=== PATIENT | male | born 1950 | race Caucasian/White ===

== ENCOUNTER 2017-01-21 20:46 | Inpatient (IN) | payer MEDICARE, OTHER ==
[2017-01-21] VITALS (12 sets, daily range): BP systolic 120–225; BP diastolic 87–129; PULSE 54–66; RESP 16–20; TEMP 97.5–98.1; O2SAT 95–98
[~2017-01-21] VITALS: Ht 170.2 cm; Wt 77.6 kg
[~2017-01-21 20:46] MED LIST: LISI-515 PO; ZOFR4TAB3 SL
[2017-01-21] MEDS ORDERED: ASPI325T PO (21:05)
[2017-01-21] MEDS ORDERED: LOSA100T3 PO (21:05)
--- NOTE | 2017-01-21 21:08 | PD ---
HPI Chief Complaint: Chest Pain Time Seen by Provider: 20:53 Travel History International Travel<30 days: No Contact w/Intl Traveler<30days: No Traveled to known affect area: No History of Present Illness HPI This 66-year-old male apparently developed chest pain and shortness of breath around 4:00 while he was at work. He had a little bit sweaty. It did not radiate to his arms. He had a little some discomfort in his jaw. He has no history of heart disease. 2 years ago he had a stroke area and he has had hypertension. He had recently been on atenolol but his blood pressure was not controlled and he was changed to losartan. The losartan has not been very effective with controlling his blood pressure reading. He had prostate cancer several years ago and had 40 weeks of radiation. He has not had any known heart disease. He does not smoke. There is been no surgery. He had forgotten to take his losartan this morning. At around 6:00 tonight. He also took 325 mg of aspirin prior to coming here. He is not having pain right now. After the episode for he felt okay until shortly before arrival when he had a second episode of pain which is what triggered him to come here PFS Past Medical History Cancer: Yes (PROSTATE) Cardiovascular Problems: Yes (htn on med) Cerebrovascular Accident: Yes (TIA) Diminished Hearing: No Endocrine: No Gastrointestinal Disorders: Yes (BOWEL OBSTRUCTION) GERD: Yes Genitourinary: No Hypertension: Yes Immune Disorder: No Musculoskeletal: No Neurologic: No Psychiatric: No Reproductive: No Respiratory: No Radiation Therapy: Yes (5 YEARS AGO FOR PROSTATE CA) Past Surgical History Other Surgery: No Social History Alcohol Use: Yes (WINE, OCCASIONALLY) Tobacco Use: No Substance Use: No Allergies-Medications (Allergen,Severity, Reaction): Coded Allergies: No Known Allergies (Unverified , 01/21/17) Reported Meds & Prescriptions Reported Meds & Active Scripts Active Reported Aspirin 325 Mg Tab 325 Mg PO DAILY Losartan-Hydrochlorothiazide 100-12.5 Mg Tab 1 Tab PO DAILY Review of Systems General / Constitutional: No: Fever, Chills Eyes: No: Diploplia, Blurred Vision HENT: No: Headaches, Vertigo Cardiovascular: Positive: Chest Pain or Discomfort, No: Palpitations Respiratory: No: Cough, Shortness of Breath Gastrointestinal: No: Nausea, Vomiting Genitourinary: No: Urgency, Frequency Musculoskeletal: No: Myalgias, Arthralgias Skin: No Rash, No Itching Neurologic: No: Weakness, Dizziness Hematologic/Lymphatic: No: Easy Bruising Physical Exam Narrative GENERAL: Well-developed male SKIN: Focused skin assessment warm/dry. HEAD: Atraumatic. Normocephalic. EYES: Pupils equal and round. No scleral icterus. No injection or drainage. ENT: No nasal bleeding or discharge. Mucous membranes pink and moist. NECK: Trachea midline. No JVD. CARDIOVASCULAR: Regular rate and rhythm. No murmur appreciated. RESPIRATORY: No accessory muscle use. Clear to auscultation. Breath sounds equal bilaterally. GASTROINTESTINAL: Abdomen soft, non-tender, nondistended. Hepatic and splenic margins not palpable. MUSCULOSKELETAL: No obvious deformities. No clubbing. No cyanosis. No edema. NEUROLOGICAL: Awake and alert. No obvious cranial nerve deficits. Motor grossly within normal limits. Normal speech. PSYCHIATRIC: Appropriate mood and affect; insight and judgment normal. Data Data Last Documented VS Vital Signs Date Time Temp Pulse Resp B/P (MAP) Pulse Ox O2 Delivery O2 Flow Rate FiO2 01/21/17 21:45 66 182/117 (138) 98 Nasal Cannula 2.00 01/21/17 21:27 16 01/21/17 20:46 98.1 Orders Orders Electrocardiogram (01/21/17 21:04) Basic Metabolic Panel (Bmp) (01/21/17 21:04) Complete Blood Count With Diff (01/21/17 21:04) Magnesium (Mg) (01/21/17 21:04) Prothrombin Time / Inr (Pt) (01/21/17 21:04) Act Partial Throm Time (Ptt) (01/21/17 21:04) Troponin I (01/21/17 21:04) Chest, Single Ap (01/21/17 21:04) Ecg Monitoring (01/21/17 21:04) Bilateral Bp Monitoring (01/21/17 21:04) Iv Access Insert/Monitor (01/21/17 21:04) Oximetry (01/21/17 21:04) Oxygen Administration (01/21/17 21:04) Nitroglycerin 2% Oint (Nitroglycerin 2% (01/21/17 21:15) Sodium Chloride 0.9% Flush (Ns Flush) (01/21/17 21:15) Potassium Chloride (Kcl) (01/21/17 21:45) Clonidine (Catapres) (01/21/17 22:00) Clonidine (Catapres) (01/21/17 22:30) Labs Laboratory Tests Test 01/21/17 21:10 White Blood Count 5.4 TH/MM3 Red Blood Count 4.63 MIL/MM3 Hemoglobin 14.4 GM/DL Hematocrit 42.6 % Mean Corpuscular Volume 92.0 FL Mean Corpuscular Hemoglobin 31.1 PG Mean Corpuscular Hemoglobin Concent 33.8 % Red Cell Distribution Width 13.4 % Platelet Count 208 TH/MM3 Mean Platelet Volume 7.3 FL Neutrophils (%) (Auto) 55.3 % Lymphocytes (%) (Auto) 35.3 % Monocytes (%) (Auto) 7.0 % Eosinophils (%) (Auto) 1.5 % Basophils (%) (Auto) 0.9 % Neutrophils # (Auto) 3.0 TH/MM3 Lymphocytes # (Auto) 1.9 TH/MM3 Monocytes # (Auto) 0.4 TH/MM3 Eosinophils # (Auto) 0.1 TH/MM3 Basophils # (Auto) 0.0 TH/MM3 CBC Comment DIFF FINAL Differential Comment Prothrombin Time 10.2 SEC Prothromb Time International Ratio 0.9 RATIO Activated Partial Thromboplast Time 29.0 SEC Blood Urea Nitrogen 20 MG/DL Creatinine 0.82 MG/DL Random Glucose 94 MG/DL Calcium Level 8.9 MG/DL Magnesium Level 2.3 MG/DL Sodium Level 136 MEQ/L Potassium Level 3.2 MEQ/L Chloride Level 103 MEQ/L Carbon Dioxide Level 25.2 MEQ/L Anion Gap 8 MEQ/L Estimat Glomerular Filtration Rate 94 ML/MIN Troponin I 0.06 NG/ML [facility] Medical Decision Making Medical Screen Exam Complete: Yes Emergency Medical Condition: Yes Medical Record Reviewed: Yes Differential Diagnosis Differential includes atypical chest pain, coronary artery disease, hypertension , Narrative Course EKG shows normal sinus rhythm. Troponin is 0.06. Blood pressure is elevated. Potassium is 3.2 patient has been given supplemental potassium. He has been given half inch of Nitropaste and clonidine 0.1 32 doses. His blood pressure remains elevated . He has not had chest pain in the emergency department Diagnosis Primary Impression: Hypertensive urgency Additional Impression: Chest pain Qualified Codes: R07.9 - Chest pain, unspecified Admitting Information Admitting Physician Requests: it Les Okeefe MD Jan 21, 2017 21:08
[2017-01-21] MEDS ORDERED: SODIUM CHLORIDE 0.9% FLUSH 10 ML FLUSH IVF PRN (21:15)
[2017-01-21] MEDS ORDERED: NITROGLYCERIN 2% OINT 1 GM PACKET TOP ONE (21:15)
[2017-01-21 21:24] LABS: BASOPHIL % 0.9 % (0.0-2.0); EOSINOPHIL # 0.1 TH/MM3 (0-0.4); EOSINOPHIL % 1.5 % (0.0-4.0); HEMATOCRIT 42.6 % (39.0-51.0); HEMO FLAGS DIFF FINAL; LYMPH % 35.3 % (9.0-44.0); LYMPHOCYTE # 1.9 TH/MM3 (1.0-4.8); MEAN CORPUSCULAR HEMOGLOBIN 31.1 PG (27.0-34.0); MEAN CORPUSCULAR HGB CONC 33.8 % (32.0-36.0); NEUT % 55.3 % (16.0-70.0); PLATELET COUNT 208 TH/MM3 (150-450); RED BLOOD COUNT 4.63 MIL/MM3 (4.50-5.90); RED CELL DISTRIBUTION WIDTH 13.4 % (11.6-17.2); WHITE BLOOD COUNT 5.4 TH/MM3 (4.0-11.0)
[2017-01-21 21:32] LABS: POTASSIUM 3.2 MEQ/L (3.5-5.1)
[2017-01-21 21:34] LABS: BICARBONATE 25.2 MEQ/L (21.0-32.0); MAGNESIUM 2.3 MG/DL (1.5-2.5)
--- NOTE | 2017-01-21 21:34 | RADRPT ---
EXAM DATE/TIME: 01/21/2017 21:23 [facility] COMPARISON: CHEST PA & LAT, October 16, 2015, 23:55. INDICATIONS : Short of breath and chest pain. MEDICAL HISTORY : Cerebrovascular disease. Carcinoma, prostate SURGICAL HISTORY : ENCOUNTER: Initial ACUITY: 1 day PAIN SCORE: 2/10 LOCATION: Bilateral chest FINDINGS: A single view of the chest demonstrates the lungs to be symmetrically aerated without evidence of mas s, infiltrate or effusion. The cardiomediastinal contours are unremarkable. Osseous structures are intact. CONCLUSION: No evidence of acute cardiopulmonary disease. Wing Andrea MD on January 21, 2017 at 21:33 Board Certified Radiologist. This report was verified electronically.
[2017-01-21 21:35] LABS: INTERNATIONAL NORMALIZED RATIO 0.9 RATIO; PROTHROMBIN TIME - PATIENT 10.2 SEC (9.8-11.6)
[2017-01-21] MEDS ORDERED: POTASSIUM CHLORIDE 20 MEQ CONTROLLED RELEASE TAB PO ONE (21:45)
[2017-01-21] MEDS ORDERED: cloNIDine HCL 0.1 MG TAB PO ONE ×2 (22:00→22:30)
[2017-01-21] MEDS ORDERED: SODIUM CHLORIDE 0.9% FLUSH 10 ML FLUSH IV FLUSH PRN (22:45)
[2017-01-21] MEDS ORDERED: hydrALAZINE HCL 20 MG/ML VIAL IV PUSH PRN (22:45)
[2017-01-21] MEDS ORDERED: NALOXONE HCL 0.4 MG/ML AMP IV PUSH PRN (22:45)
[2017-01-21] MEDS ORDERED: ONDANSETRON HCL 4 MG/2 ML VIAL IV PUSH ONE (23:30)
[2017-01-22] VITALS: O2SAT 95
[2017-01-22 04:00] VITALS: BP 100/72; PULSE 50; RESP 16; TEMP 98.8; O2SAT 98
[2017-01-22 06:23] LABS: AUTOMATED NEUTROPHIL # 3.7 TH/MM3 (1.8-7.7); BASOPHIL % 0.5 % (0.0-2.0); EOSINOPHIL # 0.1 TH/MM3 (0-0.4); EOSINOPHIL % 1.1 % (0.0-4.0); HEMATOCRIT 37.5 % (39.0-51.0); LYMPH % 27.1 % (9.0-44.0); LYMPHOCYTE # 1.5 TH/MM3 (1.0-4.8); MEAN CELL VOLUME 92.9 FL (80.0-100.0); MEAN CORPUSCULAR HEMOGLOBIN 31.7 PG (27.0-34.0); MEAN CORPUSCULAR HGB CONC 34.1 % (32.0-36.0); MONO % 5.5 % (0.0-8.0); NEUT % 65.8 % (16.0-70.0); PLATELET COUNT 198 TH/MM3 (150-450); POTASSIUM 3.6 MEQ/L (3.5-5.1); RED BLOOD COUNT 4.04 MIL/MM3 (4.50-5.90); RED CELL DISTRIBUTION WIDTH 13.2 % (11.6-17.2); WHITE BLOOD COUNT 5.6 TH/MM3 (4.0-11.0)
[2017-01-22 06:24] LABS: HEMO FLAGS DIFF FINAL
[2017-01-22 06:28] LABS: BICARBONATE 27.5 MEQ/L (21.0-32.0)
[2017-01-22] MEDS ORDERED: SODIUM CHLORIDE 0.9% FLUSH 10 ML FLUSH IV FLUSH SCH (09:00)
--- NOTE | 2017-01-22 10:22 | EKG ---
Date Performed: 01/22/2017 Time Performed: 02:56:31 PTAGE: 66 years EKG: SINUS BRADYCARDIA MODERATE VOLTAGE CRITERIA FOR LVH, CONSIDER NORMAL VARIANT NONSPECIFIC T- WAVE ABNORMALITY Compared to previous tracing nonspecific T wave changes are more prominent BORDERLIN E ECG PREVIOUS TRACING : 01/21/2017 20.53 DOCTOR: Phillip Tidwell Interpretating Date/Time 01/22/2017 10:18:28
--- NOTE | 2017-01-22 10:28 | EKG ---
Date Performed: 01/21/2017 Time Performed: 20:53:03 PTAGE: 66 years EKG: Sinus rhythm MODERATE VOLTAGE CRITERIA FOR LVH, CONSIDER NORMAL VARIANT BORDERLINE ECG PREVIOUS TRACING : 10/06/2013 21.13 Compared to prior tracing no significant change DOCTOR: Phillip Tidwell Interpretating Date/Time 01/22/2017 10:21:44
[2017-01-22 11:43] VITALS: BP 134/87; PULSE 51; RESP 16; TEMP 96.5; O2SAT 97
--- NOTE | 2017-01-22 11:47 | HHI.HP ---
[facility] Service [facility] Hospital[facility] Primary Care Physician Non-Staff Admission Diagnosis HYPERTENSIVE URGENCY, CHEST PAIN Diagnoses: (1) Accelerated hypertension Diagnosis: Principal (2) Chest pain Diagnosis: Principal Chief Complaint: Chest pain Travel History International Travel<30 Days: No Contact w/Intl Traveler <30 Da: No Traveled to Known Affected Are: No History of Present Illness Written by Ced Corral, acting as scribe for Dr. Odonnell on 01/22/17 at 11: 43. 66-year-old male with known history of hypertension, prostate cancer who presented to hospital because of chest discomfort. Patient states that he developed chest discomfort across his entire chest that started at approximately 4 PM yesterday afternoon while he was at work, which he describes the pressure sensation radiating into his back, with associated shortness of breath, headache. Patient indicates that his pain resolved on its own right before the time he came to emergency department which was at 8: 45. Patient Denied any nausea, vomiting, lightheadedness, dizziness. Patient does have history of hypertension and he forgot to take his blood pressure medication that morning and when he presented to the emergency department his blood pressure was 220/112. Patient was given clonidine and started on Nitropaste with significant reduction in his blood pressure. Blood pressure is now controlled. After his blood pressure was controlled the patient no longer experiencing any chest discomfort. Patient workup did indicate equivocal troponin elevation in because of those reasons is recommended by the ER physician that the patient be admitted the hospital for further evaluation and management. Review of Systems Respiratory: COMPLAINS OF: Shortness of breath Cardiovascular: COMPLAINS OF: Chest pain Neurologic: COMPLAINS OF: Headache Except as stated in HPI: all other systems reviewed are Neg Past Family Social History Past Medical History Hypertension History of prostate cancer History of gastroesophageal reflux Past Surgical History Patient denies any previous surgeries Reported Medications Reported Meds & Active Scripts Active Reported Aspirin 325 Mg Tab 325 Mg PO DAILY Losartan-Hydrochlorothiazide 100-12.5 Mg Tab 1 Tab PO DAILY Allergies: Coded Allergies: No Known Allergies (Unverified , 01/21/17) Family History Reviewed and unremarkable for any heart disease, diabetes, cancer Social History Patient denies any tobacco, alcohol or illicit drugs Physical Exam Vital Signs Vital Signs Date Time Temp Pulse Resp B/P (MAP) Pulse Ox O2 Delivery O2 Flow Rate FiO2 01/22/17 04:00 98.8 50 16 100/72 (81) 98 01/22/17 00:00 95 Nasal Cannula 2.00 01/21/17 23:45 97.5 60 20 121/93 (102) 95 01/21/17 23:38 01/21/17 23:35 57 133/88 (103) 01/21/17 23:23 58 16 127/91 (103) 98 Nasal Cannula 2.00 01/21/17 23:12 54 120/87 (98) 98 Nasal Cannula 2.00 01/21/17 23:00 64 156/100 (118) 01/21/17 22:55 63 165/112 (129) 98 Nasal Cannula 2.00 01/21/17 22:20 59 176/112 (133) 97 Nasal Cannula 2.00 01/21/17 21:45 66 182/117 (138) 98 Nasal Cannula 2.00 01/21/17 21:27 66 16 207/120 (149) 98 Nasal Cannula 2.00 01/21/17 21:12 Nasal Cannula 2.00 01/21/17 21:11 213/122 (152) 01/21/17 21:08 66 221/129 (159) 225/117 (153) 01/21/17 21:00 Room Air 01/21/17 20:46 98.1 66 20 220/112 (148) 98 Physical Exam GENERAL: Well-developed, well-nourished, in no acute distress. alert and orientated HEENT: Head is normocephalic without any lesions or masses noted. Facial features are symmetric. Eyes: Pupils equal round reactive to light. Extraocular muscles are intact. Conjunctivae were clear. Oropharyngeal: Pharynx without any erythema edema. Tongue is midline without deviation. Buccal mucosa is moist without any masses or lesions NECK: Supple without any masses. Trachea midline no deviation. No JVD, no bruits are appreciated CARDIAC: Regular rhythm, regular rate. S1/S2 are heard. No murmurs gallops or rubs. LUNGS: Clear to auscultation bilaterally. No wheeze, rhonchi or rales. No use of accessory muscles on inspiration or expiration. ABDOMEN: Soft, nontender. Nondistended. Bowel sounds heard in all 4 quadrants. No organomegaly or masses. Negative rebound, negative guarding EXTREMITIES: No edema, pulses are equal bilaterally. No cyanosis or clubbing NEUROLOGY: Mood and affect appear appropriate. Cranial nerves II through XII grossly intact. Muscle strength 5/5 in upper and lower extremities bilaterally. Deep tendon reflexes are 2+ in upper and lower extremities bilaterally. Laboratory Laboratory Tests Test 01/21/17 21:10 01/22/17 01:00 01/22/17 05:50 01/22/17 08:35 White Blood Count 5.4 5.6 Red Blood Count 4.63 4.04 Hemoglobin 14.4 12.8 Hematocrit 42.6 37.5 Mean Corpuscular Volume 92.0 92.9 Mean Corpuscular Hemoglobin 31.1 31.7 Mean Corpuscular Hemoglobin Concent 33.8 34.1 Red Cell Distribution Width 13.4 13.2 Platelet Count 208 198 Mean Platelet Volume 7.3 7.1 Neutrophils (%) (Auto) 55.3 65.8 Lymphocytes (%) (Auto) 35.3 27.1 Monocytes (%) (Auto) 7.0 5.5 Eosinophils (%) (Auto) 1.5 1.1 Basophils (%) (Auto) 0.9 0.5 Neutrophils # (Auto) 3.0 3.7 Lymphocytes # (Auto) 1.9 1.5 Monocytes # (Auto) 0.4 0.3 Eosinophils # (Auto) 0.1 0.1 Basophils # (Auto) 0.0 0.0 CBC Comment DIFF FINAL DIFF FINAL Differential Comment Prothrombin Time 10.2 Prothromb Time International Ratio 0.9 Activated Partial Thromboplast Time 29.0 Blood Urea Nitrogen 20 19 Creatinine 0.82 0.92 Random Glucose 94 103 Calcium Level 8.9 8.6 Magnesium Level 2.3 Sodium Level 136 139 Potassium Level 3.2 3.6 Chloride Level 103 104 Carbon Dioxide Level 25.2 27.5 Anion Gap 8 8 Estimat Glomerular Filtration Rate 94 83 Troponin I 0.06 0.06 0.04 Result Diagram: 01/22/17 0550 01/22/17 0550 Imaging Last Impressions Chest X-Ray 01/21/172103 Signed Impressions: Service Date/Time: December 21:23 - CONCLUSION: No evidence of acute cardiopulmonary disease. Wing Andrea MD Caprinkyra VTE Risk Assessment Caprini VTE Risk Assessment: No/Low Risk (score <= 1) Caprini Risk Assessment Model Point Value = 1 Point Value = 2 Point Value = 3 Point Value = 5 Age 41-60 Minor surgery BMI > 25 kg/m2 Swollen legs Varicose veins or History of unexplained or recurrent spontaneous Oral contraceptives or hormone replacement Sepsis (< 1 month) Serious lung disease, including pneumonia (< 1 month) Abnormal pulmonary function Acute myocardial infarction Congestive heart failure (< 1 month) History of inflammatory bowel disease Medical patient at bed rest Age 61-74 Arthroscopic surgery Major open surgery (> 45 min) Laparoscopic surgery (> 45 min) Malignancy Confined to bed (> 72 hours) Immobilizing plaster cast Central venous access Age >= 75 History of VTE Family history of VTE Factor V Leiden Prothrombin [id number] Lupus anticoagulant Anticardiolipin antibodies Elevated serum homocysteine Heparin-induced thrombocytopenia Other congenital or acquired thrombophilia Stroke (< 1 month) Elective arthroplasty Hip, pelvis, or leg fracture Acute spinal cord injury (< 1 month) Prophylaxis Regimen Total Risk Factor Score Risk Level Prophylaxis Regimen 0-1 Low Early ambulation 2 Moderate Order ONE of the following: *Sequential Compression Device (SCD) *Heparin 5000 units SQ BID 3-4 Higher Order ONE of the following medications: *Heparin 5000 units SQ TID *Enoxaparin/Lovenox 40 mg SQ daily (WT < 150 kg, CrCl > 30 mL/min) *Enoxaparin/Lovenox 30 mg SQ daily (WT < 150 kg, CrCl > 10-29 mL/min) *Enoxaparin/Lovenox 30 mg SQ BID (WT < 150 kg, CrCl > 30 mL/min) AND/OR *Sequential Compression Device (SCD) 5 or more Highest Order ONE of the following medications: *Heparin 5000 units SQ TID (Preferred with Epidurals) *Enoxaparin/Lovenox 40 mg SQ daily (WT < 150 kg, CrCl > 30 mL/min) *Enoxaparin/Lovenox 30 mg SQ daily (WT < 150 kg, CrCl > 10-29 mL/min) *Enoxaparin/Lovenox 30 mg SQ BID (WT < 150 kg, CrCl > 30 mL/min) AND *Sequential Compression Device (SCD) Assessment and Plan Assessment and Plan Accelerated hypertension Secondary to patient not taking his medication Blood pressure much improved at this time after use of nitroglycerin, clonidine Resume patient's home medications Chest discomfort Patient's with increased risk factor for underlying coronary disease are age , male, hypertension Likely secondary to uncontrolled hypertension Patient with equivocal troponin elevation which has returned to normal, likely from uncontrolled hypertension Will pursue Lexiscan in order to rule out any underlying ischemia DVT prevention Low risk, early ambulation Discharge disposition Discharge home in stable condition if stress test is negative Activity: Ad kalpesh. Diet: Healthy heart diet Medications per medication reconciliation Follow-up primary medical doctor in one week This note was transcribed by PÉREZ Sousa. I, Dr. Jeniffer Odonnell personally performed the history, physical exam, and medical decision making; and confirmed the accuracy of the information in the transcribed note. Authenticated by Dr. Jeniffer Odonnell on 01/22/17 at 11:43 Physician Certification 2 Midnight Certification Type: Admission for Inpatient Services Order for Inpatient Services The services are ordered in accordance with Medicare regulations or non- Medicare payer requirements, as applicable. In the case of services not specified as inpatient-only, they are appropriately provided as inpatient services in accordance with the 2-midnight benchmark. Estimated LOS (days): 1 days is the estimated time the patient will need to remain in the hospital, assuming treatment plan goals are met and no additional complications. Post-Hospital Plan: Home Problem Qualifiers (1) Chest pain: Qualified Codes: R07.9 - Chest pain, unspecified Ced Corral Jan 22, 2017 11:47 Jeniffer Odonnell MD Jan 22, 2017 12:01
[2017-01-22] MEDS ORDERED: NON-FORMULARY DRUG (Losartan-Hydrochlorothiazide 1 TAB) PO SCH (12:00)
[2017-01-22] MEDS ORDERED: ASPIRIN 325 MG TAB PO SCH (12:00)
[2017-01-22] MEDS ORDERED: LOSARTAN 50 MG TAB PO SCH (12:02)
[2017-01-22] MEDS ORDERED: HYDROCHLOROTHIAZIDE 12.5 MG CAP PO SCH (12:02)
--- NOTE | 2017-01-22 12:10 | EKG ---
Date Performed: 01/22/2017 Time Performed: 08:46:17 PTAGE: 66 years EKG: SINUS BRADYCARDIA MODERATE VOLTAGE CRITERIA FOR LVH, CONSIDER NORMAL VARIANT NONSPECIFIC T- WAVE ABNORMALITY Since previous tracing, no significant change noted BORDERLINE ECG PREVIOUS TRACING : 01/22/2017 02.56 DOCTOR: Phillip Tidwell Interpretating Date/Time 01/22/2017 12:09:06
[2017-01-22] MEDS ORDERED: REGADENOSON INJ 0.4 MG/5 ML SYR IV ONE (13:33)
--- NOTE | 2017-01-22 15:33 | RADRPT ---
EXAM DATE/TIME: 01/22/2017 13:39 [facility] COMPARISON: No previous studies available for comparison. INDICATIONS : Mid chest pain radiating to the jaw for one day. Angina. DOSE: 25.5 mCi Tc99m Myoview at stress. 8.6 mCi Tc99m Myoview at rest. 0.4 mg Lexiscan STRESS SYMPTOMS: Shortness of breath. EJECTION FRACTION: 58% MEDICAL HISTORY : Carcinoma, prostate. Hypertension. Stroke. SURGICAL HISTORY : None. ENCOUNTER: Initial ACUITY: 1 day PAIN SCALE: 6/10 LOCATION: Midsternal chest TECHNIQUE: The patient underwent pharmacologic stress with infusion of prescribed dose. Continuous ECG tracing was monitored during stress. Gated SPECT imaging was performed after stress and conventional SPECT i maging was performed at rest. The examination was performed on a SPECT/CT scanner, both attenuation and non-corrected datasets were reviewed. FINDINGS: DISTRIBUTION: The maximum perfused segment at stress is in the anterolateral wall. PERFUSION STUDY: The pattern of perfusion at stress is within normal limits. GATED STUDY: There is intact wall motion and thickening without hypokinetic or dyskinetic segments. CONCLUSION: 1. No reversible perfusion defect to suggest stress-induced myocardial ischemia. RISK CATEGORY: Low (<1% Annual Mortality Rate) Jozef Kaplan MD on January 22, 2017 at 15:31 Board Certified Radiologist. This report was verified electronically.
--- NOTE | 2017-01-22 15:57 | HHI.DCPOC ---
Discharge Care Plan Diagnosis: (1) Chest pain (2) Accelerated hypertension Goals to Promote Your Health * To prevent worsening of your condition and complications * To maintain your health at the optimal level Directions to Meet Your Goals Take your medications as prescribed Follow your dietary instruction Follow activity as directed Keep your appointments as scheduled Take your immunizations and boosters as scheduled If your symptoms worsen call your PCP, if no PCP go to Urgent Care Center or Emergency Room Smoking is Dangerous to Your Health. Avoid second hand smoke Call the 24-hour hour crisis hotline for domestic abuse at Ced Corral Jan 22, 2017 15:57
== END 2017-01-22 16:14 | disposition home or self-care (01) | DRG 313 ==
LOC: PHED 20:46 → PHEDA 22:37 → PH3A 23:40
PROVIDERS: ADMIT Hospitalist; ATTEND Hospitalist
DX: R07.9 Chest pain, unspecified (principal); I10 Essential (primary) hypertension; K21.9 Gastro-esophageal reflux disease without esophagitis; I16.0 Hypertensive urgency; Z85.46 Personal history of malignant neoplasm of prostate; Z86.73 Personal history of transient ischemic attack (TIA), and cerebral infarction without residual deficits; Z92.3 Personal history of irradiation
CPT/HCPCS: 71010; 78452; 80048; 83735; 84484; 85025; 85610; 85730; 93005; 93017; A9502; J2405; J2785

== ENCOUNTER 2017-09-02 14:04 | Emergency (ER) | payer MEDICARE, OTHER ==
[~2017-09-02] VITALS: Ht 172.7 cm; Wt 79.0 kg
[~2017-09-02 14:04] MED LIST changes: +ASPI-183 PO; -LISI-515 PO; +LOSA100T3 PO; -ZOFR4TAB3 SL
[2017-09-02 14:05] VITALS: BP 158/95; PULSE 71; RESP 18; TEMP 97.6; O2SAT 97
[2017-09-02] MEDS ORDERED: HYDR2.5%T RECTAL (14:42)
--- NOTE | 2017-09-02 14:43 | PD ---
HPI Chief Complaint: GI Complaint Time Seen by Provider: 14:19 Travel History International Travel<30 days: No Contact w/Intl Traveler<30days: No Traveled to known affect area: No History of Present Illness HPI 67 years old male complaining of rectal pain. Patient states that the symptoms started about 2 weeks ago. Patient states the pain is burning pain localized the rectal area. Patient denies any pain radiation. Patient states the pain is worse with sitting on his buttock. Patient denies any abdominal pain. Patient denies any fever chills. Patient denies any nausea vomiting diarrhea. Patient denies any dysuria or frequency. Patient denies any rectal bleed. On a scale of 1-10 the pain is a 5. PFSH Past Medical History Cancer: Yes (PROSTATE (RESOLVED)) Cardiovascular Problems: Yes (HTN) Cerebrovascular Accident: Yes (TIA) Diminished Hearing: No Endocrine: No Gastrointestinal Disorders: Yes (BOWEL OBSTRUCTION) GERD: Yes Genitourinary: No Hypertension: Yes Immune Disorder: No Musculoskeletal: No Neurologic: No Psychiatric: No Reproductive: No Respiratory: No Immunizations Current: Yes Radiation Therapy: Yes ( PROSTATE CA) Tetanus Vaccination: > 5 Years Influenza Vaccination: Yes ?: Not Past Surgical History Abdominal Surgery: Yes Other Surgery: No Social History Alcohol Use: Yes (WINE, OCCASIONALLY) Tobacco Use: No Substance Use: No Allergies-Medications (Allergen,Severity, Reaction): Coded Allergies: No Known Allergies (Unverified Adverse Reaction, Unknown, 09/02/17) Reported Meds & Prescriptions Reported Meds & Active Scripts Active Reported Aspirin 325 Mg Tab 325 Mg PO DAILY Losartan-Hydrochlorothiazide 100-12.5 Mg Tab 1 Tab PO DAILY Review of Systems General / Constitutional: No: Fever Eyes: No: Visual changes HENT: No: Headaches Cardiovascular: No: Chest Pain or Discomfort Respiratory: No: Shortness of Breath Gastrointestinal: No: Abdominal Pain Genitourinary: No: Dysuria Musculoskeletal: No: Pain Skin: No Rash Neurologic: No: Weakness Psychiatric: No: Depression Endocrine: No: Polydipsia Hematologic/Lymphatic: No: Easy Bruising Physical Exam Narrative GENERAL: Well-nourished, well-developed patient. SKIN: Focused skin assessment warm/dry. HEAD: Normocephalic. EYES: No scleral icterus. No injection or drainage. NECK: Supple, trachea midline. No JVD or lymphadenopathy. CARDIOVASCULAR: Regular rate and rhythm without murmurs, gallops, or rubs. RESPIRATORY: Breath sounds equal bilaterally. No accessory muscle use. GASTROINTESTINAL: Abdomen soft, non-tender, nondistended. Patient has external hemorrhoid. No evidence of thrombosis or bleeding. MUSCULOSKELETAL: No cyanosis, or edema. BACK: Nontender without obvious deformity. No CVA tenderness. Data Data Last Documented VS Vital Signs Date Time Temp Pulse Resp B/P (MAP) Pulse Ox O2 Delivery O2 Flow Rate FiO2 09/02/17 14:05 97.6 71 18 158/95 (116) 97 MDM Medical Decision Making Medical Screen Exam Complete: Yes Emergency Medical Condition: Yes Differential Diagnosis Differential diagnosis including external hemorrhoid, cellulitis, abscess. Narrative Course 67 years old male with rectal pain. Examination consistent with external hemorrhoids. Diagnosis Primary Impression: External hemorrhoids Patient Instructions: General Instructions Additional Instructions: Anusol HC as directed. Stool softener. Sitz bath. Follow-up with personal physician or colorectal surgeon if persistent problem or worse. Med/Other Pt SpecificInfo: Prescription(s) given Scripts Hydrocortisone Rectal (Anusol-Hc Rectal) 2.5% Cream 1 APPLIC RECTAL Q4-6H Y for ITCHING/INFLAMMATION, #30 GM 0 Refills Prov: Zac Xie MD 09/02/17 Disposition: 01 DISCHARGE HOME Condition: Stable Zac Xie MD September 02, 2017 14:43
== END 2017-09-02 14:55 | disposition home or self-care (01) ==
LOC: PHED 14:04
DX: K64.4 Residual hemorrhoidal skin tags (principal); I10 Essential (primary) hypertension; K21.9 Gastro-esophageal reflux disease without esophagitis; Z87.19 Personal history of other diseases of the digestive system; Z85.46 Personal history of malignant neoplasm of prostate; Z86.73 Personal history of transient ischemic attack (TIA), and cerebral infarction without residual deficits; Z79.82 Long term (current) use of aspirin; Z79.899 Other long term (current) drug therapy
CPT/HCPCS: 99283